=== PATIENT | male | born 1990 | race Two or more races ===

== ENCOUNTER 2023-06-22 09:01 | Emergency (ER) | payer OTHER ==
[~2023-06-22] VITALS: Ht 177.8 cm; Wt 64.4 kg
[2023-06-22 09:36] VITALS: BP 144/96; PULSE 83; RESP 16; TEMP 97.8; O2SAT 98
[2023-06-22] MEDS ORDERED: IBUP-1456 PO (09:48)
[2023-06-22] MEDS ORDERED: CLIN300C70 PO (09:48)
[2023-06-22] MEDS ORDERED: HYDROcodone-ACET 5/325MG TAB PO ONE (10:00)
== END 2023-06-22 10:01 | disposition home or self-care (01) ==
LOC: ER 09:01
DX: K04.7 Periapical abscess without sinus (principal); Z79.1 Long term (current) use of non-steroidal anti-inflammatories (NSAID); Z79.2 Long term (current) use of antibiotics

== ENCOUNTER 2023-11-23 14:31 | Emergency (ER) | payer OTHER ==
[~2023-11-23] VITALS: Ht 177.8 cm; Wt 61.9 kg
[~2023-11-23 14:31] MED LIST: CLIN1CAP70 PO; IBUP-1456 PO
[2023-11-23 16:45] VITALS: BP 141/70; PULSE 98; RESP 16; TEMP 98.4; O2SAT 100
== END 2023-11-23 16:55 | disposition left against medical advice (07) ==
LOC: ER 14:31
DX: K08.89 Other specified disorders of teeth and supporting structures (principal); Z76.0 Encounter for issue of repeat prescription